=== PATIENT | female | born 1970 | race Caucasian/White ===

== ENCOUNTER 2018-02-25 19:32 | Emergency (ER) | payer OTHER | END 2018-02-25 20:55 | disposition home or self-care (01) | LOC: ER 20:55 | DX: S13.4XXA Sprain of ligaments of cervical spine, initial encounter (principal); S23.3XXA Sprain of ligaments of thoracic spine, initial encounter; M25.511 Pain in right shoulder; M25.571 Pain in right ankle and joints of right foot; Z88.5 Allergy status to narcotic agent; V49.49XA Driver injured in collision with other motor vehicles in traffic accident, initial encounter; Y93.89 Activity, other specified; Y92.488 Other paved roadways as the place of occurrence of the external cause; Y99.8 Other external cause status | CPT/HCPCS: 72125; 72128; 73610; 99284 ==